=== PATIENT | female | born 1980 | race Caucasian/White ===

== ENCOUNTER → 2018-07-13 17:56 | Outpatient (CLI) | payer BC, SELFPAY ==
--- NOTE | 2018-07-13 18:12 | XR_ITS ---
XR hip RT 2-3V w/pelvis HISTORY: Right hip pain ITS.REASON: PAIN ORDERING PHYSICIAN: Gabrielle Chaney PATIENT AGE: 38 years COMPARISON: None FINDINGS: No fracture or dislocation is evident. No significant degenerative change. No lytic or blastic change. Unremarkable soft tissues . Bilateral tubal ligation clips are present. IMPRESSION: Negative hip
== END ==
PROVIDERS: PCP Nurse Practitioner Family; Visit Provider Nurse Practitioner Family
DX: M25.551 Pain in right hip (principal)
CPT/HCPCS: 73502

== ENCOUNTER 2019-11-10 13:41 | Emergency (ER) | payer BC, SELFPAY ==
[2019-11-10 13:42] VITALS: BP 124/94; PULSE 98; RESP 16; TEMP 38; O2SAT 98; BMI 36.6
--- NOTE | 2019-11-10 13:57 | HMH.EDLOEX ---
ED Disposition Clinical Impression: Laceration Disposition: Home, Self-Care Condition on Discharge: Good Instructions: DI for Laceration Repair Additional Instructions: Follow-up with podiatry in 2 to 3 days for wound check. Change dressing daily and keep wound dry and clean being sure to pad in between the toes when you apply the dressing. Return to a provider for fever, foul-smelling drainage, worsening pain. Prescriptions: cephALEXin [Keflex 500mg Cap] 500 mg PO QID 5 Days #20 cap Prescription Printed Referrals: Preethi Funes DPM [Staff Physician] - 3 days - Critical Care Critical Care Time: No Attestation: On , the high probability of a clinically significant, sudden or life threatening deterioration of the following system(s) required my full and direct attention, intervention and personal management. The time I documented below is in addition to time spent performing reported procedures but includes the following listed in this critical care notation. Medical Decision Making - Medical Records Medical records reviewed: Yes: I reviewed the patient's medical records. - William Inquiry Pt receiving controlled substance: No Vital Signs: 11/10/19 13:42 Temperature 100.4 F H Temperature Source Oral Pulse Rate [Left Radial] 98 H Respiratory Rate 16 Blood Pressure [Right Arm] 124/94 H Blood Pressure Mean [Right Arm] 104 Blood Pressure Position [Right Arm] Sitting 02 Sat by Pulse Oximetry 98 Oxygen Delivery Method Room Air Orders (Tests/Meds): ED MEDICATIONS Discontinued Medications Generic Name Dose Route Start Last Admin Trade Name Freq PRN Reason Stop Dose Admin Tetanus/Reduced Diphtheria/Acell Pertussis 0.5 ml 11/10/19 14:00 11/10/19 14:21 Adacel Tdap 0.5ml Syringe IM 11/10/19 14:01 0.5 ml .ONCE ONE Administration ORDERS Category Date Time Status Foot XR right 2 views [XR foot RT 2V] Stat Exams 11/10/19 13:59 Ordered - Radiology Data #1 Image(s): Foot/Toes Image Reviewed: Yes I reviewed the patient's radiology image No acute fracture or dislocation Medical Decision Narrative: Patient with laceration repaired as documented. No acute fracture on x-ray. Will cover with antibiotics given nature of injury. Advise follow-up with podiatry given complicated nature of her wound. Tetanus updated. Lower Extremity Injury HPI - General Stated Complaint: ao mowing cut foot toes Time Seen by Provider: 11/10/19 13:58 Mode of Arrival: Wheelchair Source of Information: Patient Limitations: No Limitations - History of Present Illness HPI Narrative: This is a 39-year-old female who presents to the emergency department for evaluation of right foot injury while mowing her lawn just prior to arrival. States that she was trying to get this to return more under a way again and cut the top of her foot. Pain is worse with movement, better with rest. Unknown tetanus status. - Related Data Home Medications Medication Instructions Recorded Confirmed Citalopram Hydrobromide [Celexa] 20 mg PO DAILY 07/19/19 07/19/19 Doxycycline Hyclate [Doxycycline 100 mg PO BID 07/19/19 07/19/19 100mg Capsule] Previous Rx's Medication Instructions Recorded Butalb/Acetaminophen/Caffeine 1 each PO Q4HP PRN #8 cap 07/19/19 [Fioricet 50-300-40 mg Capsule] cephALEXin [Keflex 500mg Cap] 500 mg PO QID 5 Days #20 cap 11/10/19 Allergies Allergy/AdvReac Type Severity Reaction Status Date / Time No Known Allergies Allergy Verified 08/06/18 16:04 [facility] History - Hepatitis A Screen Attestation statement:: This patient has been screened for Hepatitis A risk factors. I have reviewed the patient's past medical history: Yes Medical History: Denies:: Diabetes Mellitus Type 1, Diabetes Mellitus Type 2 Other Surgeries: Yes: Dilation and Curettage, Tubal Ligation Comment: ablation - Social History Smoking Status: Never smoker Alcohol Intake: never Alcoh
--- NOTE | 2019-11-10 13:59 | XR_ITS ---
PROCEDURE: XR FOOT RT 2V CLINICAL INDICATION: cut with riding lawnmower COMPARISON: No exams were available for comparison FINDINGS: No fracture or dislocation. No lytic or blastic change. There is normal mineralization. The joint spaces are well-preserved. No significant degenerative/arthritic changes. No erosive changes evident. There is a small spur of the calcaneus at the surface of the Achilles tendon. Other findings:No significant soft tissue injury is identified. IMPRESSION: No acute findings. Dictated by: Dr. Maciej Moreland MD 11/10/2019 16:[address] Maciej Moreland MD in [place] 11/10/2019 16:25
--- NOTE | 2019-11-10 14:12 | PC.NURSE ---
Rad at bedside
--- NOTE | 2019-11-10 15:05 | PC.NURSE ---
non adherent dressing applied to rt foot
[2019-11-10 15:14] VITALS: BP 135/88; PULSE 88; RESP 16; TEMP 37.7; O2SAT 98
== END 2019-11-10 15:16 | disposition home or self-care (01) ==
PROVIDERS: Emergency Provider Emergency Medicine; PCP Nurse Practitioner Family
DX: S91.311A Laceration without foreign body, right foot, initial encounter (principal); W30.89XA Contact with other specified agricultural machinery, initial encounter; Y92.017 Garden or yard in single-family (private) house as the place of occurrence of the external cause; Z23 Encounter for immunization
CPT/HCPCS: 12002; 73620; 90471; 90715; 99282

== ENCOUNTER → 2019-11-18 16:51 | Outpatient (CLI) | payer BC, SELFPAY ==
--- NOTE | 2019-11-18 16:58 | XR_ITS ---
PROCEDURE: XR FOOT WT BEARING LT 3V CLINICAL INDICATION: Right 2nd and 3rd toe lacerations COMPARISON: XR FOOT RT 2V from 11/10/2019 FINDINGS: No fracture or dislocation. No lytic or blastic change. There is normal mineralization. The joint spaces are well-preserved. No significant degenerative/arthritic changes. No erosive changes evident. Other findings:No radiopaque foreign body IMPRESSION: No acute findings. Dictated by: Ru Frazier MD 11/18/2019 18:13 Electronically signed by Ru Frazier MD in [place] 11/18/2019 18:13
== END ==
PROVIDERS: PCP Nurse Practitioner Family; Visit Provider Podiatrist
DX: S99.921A Unspecified injury of right foot, initial encounter (principal); W28.XXXA Contact with powered lawn mower, initial encounter; L03.115 Cellulitis of right lower limb
CPT/HCPCS: 36415; 73630; 80053; 85025; 85651; 86140

== ENCOUNTER → 2019-11-18 17:05 | Outpatient (CLI) | payer BC, SELFPAY ==
[2019-11-18 17:16] LABS: Basophils # 0.1 K/mm3 (0-0.2); Basophils % 0.6 % (0.1-2.0); Eosinophils # 0.3 K/mm3 (0.0-0.4); Eosinophils % 2.6 % (0.1-12.0); Hematocrit 43.2 % (37.0-47.0); Hemoglobin 15.2 g/dL (12.2-16.2); Lymphocytes # 2.4 K/mm3 (0.7-4.5); Lymphocytes % 23.6 % (10-50); Mean Corpuscular HGB Conc 35.1 g/dL (31.8-35.4); Mean Corpuscular Hemoglobin 30.6 pg (27.0-31.2); Mean Corpuscular Volume 87.3 fl (81-99); Monocytes # 0.6 K/mm3 (0.1-1.0); Monocytes % 5.4 % (1.7-9.3); Neutrophils # 6.9 K/mm3 (1.8-7.8); Neutrophils % 67.7 % (37.0-80.0); Platelet Count 331 K/mm3 (142-424); Red Blood Count 4.94 M/mm3 (4.20-5.40); Red Cell Distribution Width 12.7 % (11.5-17.5); White Blood Count 10.3 K/mm3 (4.8-10.8)
[2019-11-18 19:16] LABS: Erythrocyte Sedimentation Rate 33 mm/hr (0-20)
[2019-11-18 19:38] LABS: Chloride 101 mmol/L (98-107); Sodium 138 mmol/L (136-145)
[2019-11-18 19:39] LABS: Potassium 4.9 mmoL/L (3.5-5.1)
[2019-11-18 19:41] LABS: Alanine Aminotransferase 74 U/L (12-78); Alkaline Phosphatase 66 U/L (38-126); Anion Gap 12.9 mEq/L (5-15); Aspartate Amino Transferase 57 U/L (14-36); Bilirubin,Total 0.5 mg/dl (0.2-1.3); Blood Urea Nitrogen 10 mg/dl (7-17); Carbon Dioxide 29 mmol/L (22.0-30.0); Estimated Glomerular Filt Rate 69 ml/min (>60); GFR (African American) 84 ML/MIN (>60)
[2019-11-18 19:42] LABS: Albumin Level 4.5 g/dl (3.5-5.0); Albumin/Globulin Ratio 1.6 (1.1-1.8); Calcium 9.7 mg/dl (8.4-10.2); Globulin 2.9 g/dL (1.3-3.2); Glucose 82 mg/dl (74-100); Total Protein,Serum 7.4 g/dl (6.3-8.2)
[2019-11-18 19:47] LABS: C-Reactive Protein 5.6 mg/L (0-4)
== END ==
PROVIDERS: Visit Provider Podiatrist
DX: L03.115 Cellulitis of right lower limb (principal)
CPT/HCPCS: 36415; 80053; 85025; 85651; 86140

== ENCOUNTER 2019-12-09 10:28 | Emergency (ER) | payer BC, SELFPAY ==
[2019-12-09 10:40] VITALS: BP 144/102; PULSE 91; RESP 15; TEMP 36.8; O2SAT 98; BMI 35.7
[2019-12-09 11:10] LABS: Adenovirus F 40/41, stool Not Detected (NotDetected); Astrovirus Not Detected (NotDetected); Campylobacter Not Detected (NotDetected); Cryptosporidium Not Detected (NotDetected); Cyclospora Cayetanesis Not Detected (NotDetected); Entamoeba histolytica Not Detected (NotDetected); Enteroaggregative E coli Not Detected (NotDetected); Enteropathogenic E coli Not Detected (NotDetected); Enterotoxigenic E coli Not Detected (NotDetected); Giardia lamblia Not Detected (NotDetected); Norovirus Not Detected (NotDetected); Plesimonas Shigalloides, PCR Not Detected (NotDetected); Rotavirus A Not Detected (NotDetected); Salmonella, PCR Not Detected (NotDetected); Sapovirus Not Detected (NotDetected); Shiga-like toxin E coli Not Detected (NotDetected); Shigella Enterovasive E coli Not Detected (NotDetected); Vibrio Cholerae Not Detected (NotDetected); Vibrio, PCR Not Detected (NotDetected); Yersinia Entercolitica, PCR Not Detected (NotDetected)
[2019-12-09 11:25] LABS: Basophils % 0.5 % (0.1-2.0); Eosinophils # 0.1 K/mm3 (0.0-0.4); Eosinophils % 1.8 % (0.1-12.0); Hematocrit 39.2 % (37.0-47.0); Hemoglobin 13.9 g/dL (12.2-16.2); Lymphocytes # 1.9 K/mm3 (0.7-4.5); Lymphocytes % 26.7 % (10-50); Mean Corpuscular HGB Conc 35.5 g/dL (31.8-35.4); Mean Corpuscular Hemoglobin 30.7 pg (27.0-31.2); Mean Corpuscular Volume 86.4 fl (81-99); Mean Platelet Volume 7.1 fl (7.4-10.4); Monocytes # 0.4 K/mm3 (0.1-1.0); Monocytes % 5.1 % (1.7-9.3); Neutrophils # 4.7 K/mm3 (1.8-7.8); Neutrophils % 65.9 % (37.0-80.0); Platelet Count 277 K/mm3 (142-424); Red Blood Count 4.53 M/mm3 (4.20-5.40); Red Cell Distribution Width 12.9 % (11.5-17.5); White Blood Count 7.1 K/mm3 (4.8-10.8)
[2019-12-09 11:29] LABS: Alanine Aminotransferase 56 U/L (12-78); Albumin Level 4.5 g/dl (3.5-5.0); Albumin/Globulin Ratio 1.5 (1.1-1.8); Alkaline Phosphatase 66 U/L (38-126); Aspartate Amino Transferase 50 U/L (14-36); Bilirubin,Total 0.3 mg/dl (0.2-1.3); Blood Urea Nitrogen 8 mg/dl (7-17); Calcium 9.1 mg/dl (8.4-10.2); Carbon Dioxide 30 mmol/L (22.0-30.0); Chloride 101 mmol/L (98-107); Creatinine Clearance Estimated 128 mL/min (50-200); Estimated Glomerular Filt Rate 69 ml/min (>60); GFR (African American) 84 ML/MIN (>60); Globulin 3.1 g/dL (1.3-3.2); Glucose 107 mg/dl (74-100); Sodium 136 mmol/L (136-145); Total Protein,Serum 7.6 g/dl (6.3-8.2)
[2019-12-09 11:34] LABS: C-Reactive Protein 18.3 mg/L (0-4)
[2019-12-09 11:42] LABS: Lactic Acid 0.8 mmol/L (0.7-2.1)
[2019-12-09 11:45] LABS: Amylase 73 U/L (30-110); Lipase 70 U/L (23-300)
[2019-12-09 11:59] LABS: Erythrocyte Sedimentation Rate 19 mm/hr (0-20)
--- NOTE | 2019-12-09 12:03 | HMH.EDGENADL ---
ED Disposition Clinical Impression: Diarrhea, C. difficile colitis Disposition: Home, Self-Care Condition on Discharge: Good Instructions: DI for Acute Abdomen Prescriptions: Vancomycin HCl 125 mg PO Q6 10 Days #40 cap Transmission Status: Sent to [facility] #[id number] Referrals: Ene Lockhart MD [Primary Care Provider] - - Critical Care Critical Care Time: No Attestation: On 12/09/19, the high probability of a clinically significant, sudden or life threatening deterioration of the following system(s) required my full and direct attention, intervention and personal management. The time I documented below is in addition to time spent performing reported procedures but includes the following listed in this critical care notation. Medical Decision Making - Medical Records Medical records reviewed: Yes: I reviewed the patient's medical records. - William Inquiry Pt receiving controlled substance: No Vital Signs: 12/09/19 10:40 12/09/19 12:31 Temperature 98.2 F 98.5 F Temperature Source Oral Oral Pulse Rate 79 Pulse Rate [Right Brachial] 91 H Respiratory Rate 15 18 Blood Pressure 119/73 Blood Pressure [Right Arm] 144/102 H Blood Pressure Mean [Right Arm] 116 Blood Pressure Source [Right Arm] Automatic Cuff Blood Pressure Position [Right Arm] Sitting 02 Sat by Pulse Oximetry 98 Oxygen Delivery Method Room Air Room Air - Lab Data Lab results reviewed: Yes: I reviewed the patient's lab results. Lab Results 12/09/19 10:55: Stl Aeromonas (PCR) Not detected, Stl C. cayetanensis PCR Not detected, Stool Rotavirus (PCR) Not detected, Stl Adenov F 40/41 PCR Not detected, Stool Astrovirus (PCR) Not detected, Stool Campylobacter PCR Not detected, Stl C.difficile Tox PCR Detected A, Stool Cryptosporidium PCR Not detected, Stl E.coli Shiga Tox PCR Not detected, Stool E coli O157 PCR Not detected, Stl Enterotoxigenic E PCR Not detected, Stool EPEC (PCR) Not detected, Stool EAEC (PCR) Not detected, Stl E. histolytica PCR Not detected, Stool Giardia Lamblia PCR Not detected, Stool Salmonella PCR Not detected, Stool Sapovirus (PCR) Not detected, Stl P. shigelloides PCR Not detected, Stl Shigella/EIEC PCR Not detected, St Y.enterocolitica PCR Not detected, Stool Vibrio (PCR) Not detected, Stl Vibrio cholerae PCR Not detected, Stl Norovirus GI/GII PCR Not detected 12/09/19 11:15: WBC 7.1, RBC 4.53, Hgb 13.9, Hct 39.2, MCV 86.4, MCH 30.7, MCHC 35.5 H, RDW 12.9, Plt Count 277, MPV 7.1 L, Neut % (Auto) 65.9, Lymph % (Auto) 26.7, Lamar % (Auto) 5.1, Eos % (Auto) 1.8, Baso % (Auto) 0.5, Neut # (Auto) 4.7, Lymph # (Auto) 1.9, Lamar # (Auto) 0.4, Eos # (Auto) 0.1, Baso # (Auto) 0.0 12/09/19 11:15: Sodium 136, Potassium 4.0, Chloride 101, Carbon Dioxide 30, Anion Gap 9.0, BUN 8, Creatinine 0.90, Estimated Creat Clear 128, Estimated GFR 69, Est GFR ( Amer) 84, Glucose 107 H, Calcium 9.1, Total Bilirubin 0.3, AST 50 H, ALT 56, Alkaline Phosphatase 66, C-Reactive Protein 18.3 H, Total Protein 7.6, Albumin 4.5, Globulin 3.1, Albumin/Globulin Ratio 1.5 12/09/19 11:15: Lactate 0.8 12/09/19 11:15: ESR 19 12/09/19 11:15: Amylase 73, Lipase 70 Result diagrams: 12/09/19 11:15 12/09/19 11:15 Orders (Tests/Meds): ED MEDICATIONS Discontinued Medications Generic Name Dose Route Start Last Admin Trade Name Freq PRN Reason Stop Dose Admin Sodium Chloride 500 mls @ 999 mls/hr 12/09/19 11:00 12/09/19 11:02 Sod Chlor 0.9% 1000ml Bag IV 12/09/19 11:30 999 mls/hr .Q31M EMELY Administration Medical Decision Narrative: Patient positive for C. difficile General Adult HPI - General Chief complaint: Abdominal Pain Stated complaint: diarrhea Time Seen by Provider: 12/09/19 12:03 Mode of Arrival: Ambulatory Source of Information: Patient Limitations: No Limitations Description of Symptoms (Recalled from ER Triage Doc. by RN): PATIENT REPORTS DIARRHEA SINCE MONDAY. REPORTS DIARRHEA EVERY HOUR. PATIENT REPORTS SH
[2019-12-09 12:31] VITALS: BP 119/73; PULSE 79; RESP 18; TEMP 36.9; O2SAT 100
[2019-12-09 12:53] LABS: Clostridium Difficile A/B, PCR Detected (NotDetected)
[2019-12-09 13:30] VITALS: BP 129/95; PULSE 80; RESP 18; TEMP 36.8; O2SAT 97
== END 2019-12-09 13:30 | disposition home or self-care (01) ==
PROVIDERS: Podiatrist; Emergency Provider Family Medicine; PCP Surgery
DX: A04.72 Enterocolitis due to Clostridium difficile, not specified as recurrent (principal)
CPT/HCPCS: 80053; 82150; 83605; 83690; 85025; 85651; 86140; 87507; 96365; 99282; 99283

== ENCOUNTER → 2019-12-31 09:36 | Outpatient (CLI) | payer BC, SELFPAY ==
[2019-12-31 09:40] LABS: Adenovirus F 40/41, stool Not Detected (NotDetected); Astrovirus Not Detected (NotDetected); Campylobacter Not Detected (NotDetected); Cryptosporidium Not Detected (NotDetected); Cyclospora Cayetanesis Not Detected (NotDetected); Entamoeba histolytica Not Detected (NotDetected); Enteroaggregative E coli Not Detected (NotDetected); Enteropathogenic E coli Not Detected (NotDetected); Enterotoxigenic E coli Not Detected (NotDetected); Giardia lamblia Not Detected (NotDetected); Norovirus Not Detected (NotDetected); Plesimonas Shigalloides, PCR Not Detected (NotDetected); Rotavirus A Not Detected (NotDetected); Salmonella, PCR Not Detected (NotDetected); Sapovirus Not Detected (NotDetected); Shiga-like toxin E coli Not Detected (NotDetected); Shigella Enterovasive E coli Not Detected (NotDetected); Vibrio Cholerae Not Detected (NotDetected); Vibrio, PCR Not Detected (NotDetected); Yersinia Entercolitica, PCR Not Detected (NotDetected)
[2019-12-31 22:05] LABS: Clostridium Difficile A/B, PCR Detected (NotDetected)
== END ==
PROVIDERS: Visit Provider Nurse Practitioner Family
DX: A04.71 Enterocolitis due to Clostridium difficile, recurrent (principal)
CPT/HCPCS: 87507

== ENCOUNTER → 2020-03-30 10:53 | Outpatient (CLI) | payer BC, SELFPAY ==
--- NOTE | 2020-03-30 10:59 | XR_ITS ---
PROCEDURE: XR SHOULDER LT MIN 2V CLINICAL INDICATION: PAIN IN LT SHOULDER COMPARISON: No exams were available for comparison FINDINGS: No fracture or dislocation. No lytic or blastic change. There is normal mineralization. The joint spaces are well-preserved. No significant degenerative/arthritic changes. No erosive changes evident. Other findings:None. IMPRESSION: No acute findings. Dictated by: Ru Frazier MD 03/30/2020 11:17 Ru Frazier MD in [place] 03/30/2020 11:17
== END ==
PROVIDERS: PCP Nurse Practitioner Family; Visit Provider Nurse Practitioner Family
DX: M25.512 Pain in left shoulder (principal)
CPT/HCPCS: 73030

== ENCOUNTER → 2020-04-07 07:40 | Outpatient (CLI) | payer BC, SELFPAY ==
--- NOTE | 2020-04-07 | MR_ITS ---
PROCEDURE: MR SHOULDER LT WO CON CLINICAL INDICATION: LEFT SHOULDER PAIN Pt. c/o left shoulder pain x 3-4 months with no known trauma or injury. Prior left shoulder x-ray 03/30/20 COMPARISON: DX XR SHOULDER LT MIN 2V from 03/30/2020 TECHNIQUE: Routine multiplanar multi echo sequences are performed without gadolinium enhancement. FINDINGS: There is mild acromioclavicular hypertrophy with subacromial stenosis. There is slight increased T2 signal of the distal aspect of the supraspinatus tendon. There is no evidence tendon tear. The infraspinatus and subscapularis and teres minor tendons are intact. No obvious labral tear. The bicipital tendon is in place. No fracture or dislocation. No abnormal fluid collections or significant osteoarthritic change. IMPRESSION: Acromioclavicular arthropathy with subacromial stenosis which may result in impingement symptomatology with tendinopathy/tendinosis of the supraspinatus tendon. No evidence of rotator cuff tear. Dictated by: Ru Frazier MD 04/09/2020 11:10 Ru Frazier MD in [place] 04/09/2020 11:10
--- NOTE | 2020-04-07 08:39 | MM_ITS ---
PROCEDURE: MM DIG SCREENING MAMM BI W/CAD Digital Breast Tomosynthesis Included CLINICAL INDICATION: SCREENING There is a history of breast cancer in the patient's maternal grandmother and maternal great aunt. COMPARISON: No exams were available for comparison TECHNIQUE: Standard CC and MLO images and 3D Tomosynthesis was obtained. R2 CAD reviewed. FINDINGS: Moderate diffuse fibroglandular densities are seen in both breast slightly more prominent right than left. There are no CAD markings. Donnell images show no suspicious abnormality. There are no suspicious microcalcifications. There are fatty replaced nodes in both axilla. IMPRESSION: Fibrofatty parenchyma with no suspicious lesions seen BI-RAD Category: 1 Negative FOLLOW-UP: 1YR 1 Year Follow-up (A letter has been sent to the patient regarding results of the study.) Dictated by: Dr. Maciej Moreland MD 04/07/2020 15:42 Dr. Maciej Moreland MD in [place] 04/07/2020 15:42
== END ==
PROVIDERS: PCP Nurse Practitioner Family; Visit Provider Nurse Practitioner Family
DX: Z12.31 Encounter for screening mammogram for malignant neoplasm of breast (principal); M25.512 Pain in left shoulder
CPT/HCPCS: 73221; 77063; 77067

== ENCOUNTER → 2021-08-31 10:57 | Outpatient (CLI) | payer BC, SELFPAY ==
--- NOTE | 2021-08-31 11:03 | MM_ITS ---
PROCEDURE INFORMATION: Exam: MG Bilateral Screening 3D Mammography Exam date and time: 08/31/2021 10:56 AM Age: 41 years old Clinical indication: Encounter for screening mammogram for malignant neoplasm of breast cancer. Her maternal grandmother and maternal great aunt had breast cancer. TECHNIQUE: Imaging protocol: Bilateral Screening tomosynthesis and 2D mammography including computer-aided detection (CAD) when performed. COMPARISON: MG MM DIG SCREENING MAMM BI W/CAD 04/07/2020 9:09 AM FINDINGS: MAMMOGRAPHY: Breast composition: The breast tissue is heterogeneously dense, which may obscure small masses. Mass: None. Architectural distortion: None. Calcifications: No suspicious calcifications. Asymmetric density: None. Skin thickening: None. Axillary adenopathy: None. IMPRESSION: No mammographic evidence of malignancy. Annual screening is recommended unless otherwise clinically indicated. ASSESSMENT: BI-RADS Category 1: Negative
== END ==
PROVIDERS: PCP Nurse Practitioner Family; Visit Provider Nurse Practitioner Family
DX: Z12.31 Encounter for screening mammogram for malignant neoplasm of breast (principal)
CPT/HCPCS: 77063; 77067

== ENCOUNTER 2022-06-24 17:33 | Emergency (ER) | payer BC, SELFPAY ==
[2022-06-24 17:40] VITALS: BP 189/101; PULSE 86; RESP 20; TEMP 37.2; O2SAT 98; BMI 38.6
--- NOTE | 2022-06-24 18:00 | XR_ITS ---
PROCEDURE INFORMATION: Exam: XR Cervical Spine Exam date and time: 06/24/2022 5:59 PM Age: 42 years old Clinical indication: Neck pain; Additional info: Pain, knot left posterior neck x 3 days no known inj TECHNIQUE: Imaging protocol: Radiologic exam of the cervical spine. Views: 2 or 3 views. COMPARISON: MR SHOULDER LT WO CON 04/07/2020 7:52 AM FINDINGS: Bones/joints: Normal. No acute fracture. Normal alignment. Soft tissues: Unremarkable. IMPRESSION: No acute findings.
--- NOTE | 2022-06-24 18:00 | EXP.UTC ---
Discharge Plan Disposition Patient Disposition: Home, Self-Care Condition: Good Prescriptions Prescriptions: New cyclobenzaprine 10 mg tablet 10 mg PO TID PRN (Reason: muscle spasm) Qty: 15 0RF methylprednisolone [Medrol (Soto)] 4 mg tablets,dose pack See Rx Instructions .Route .COMPLEX 6 Days Qty: 21 0RF Rx Instructions: taper pack; No Action propranolol 80 mg capsule,extended release 24hr 80 mg PO DAILY Label Comments: TAKE 1 CAPSULE BY MOUTH EVERY DAY FOR HEADACHE AND BLOOD PRESSURE Referrals Follow up/Referrals: Gabrielle Chaney [Primary Care Provider] - See instructions Activity Restrictions/Add. Instructions Additional Instructions/Restrictions: *Ibuprofen ajay 6 hours with meal as needed for pain/inflammation *Not additional anti-inflammatory like motrin, aleve, advil with the above amount of ibuprofen. You can still take Tylenol every 4 hours as needed if you need something else for pain *Ice 20 minutes every 2 hours for the first 48 hours after the initial injury followed by moist heat every 20 minutes 3-4 times a day to affected area *Muscle relaxer every 8 hours as needed for muscle spasms but remember, it WILL cause drowsiness You cannot take it and drive, operate machinery or care for small children. *Keep this area active, no movement leads to more stiffness, However take it easy and avoid heavy lifting pushing or pulling *Follow up with you family doctor if no improvement for further treatment Clinical Impressions Clinical Impression: Muscle spasm Instructions Patient Instructions: DI for Muscle Spasm Discharge ED Provider: [facility] General Stated complaint: SPOT ON NECK Mode of Arrival: Ambulatory Source of Information: Patient Limitations: No Limitations Time Seen by Provider: 06/24/22 18:00 Description of Symptoms (Recalled from Triage Doc. by RN): PATIENT C/O KNOT TO BACK OF NECK/UPPER BACK THAT STARTED MONDAY. SHE REPORTS THE KNOT IS TENDER TO TOUCH AND HURTS WITH MOVEMENT HEENT Symptoms (Recalled from RN notes): No Resp Symptoms (Recalled from RN notes): No Skin Symptoms (Recalled from RN notes): No MS Symptoms (Recalled from RN notes): Yes Functional Status (Recalled from RN notes): WNL History of Present Illness Provider Complaint: Patient states that she noticed knot on the back of her neck and hurts when she turns her head or moves her arm States that she thought it may be a muscle but the school nurse said it looked red earlier so they marked it States that this evening it was still sore so she came in to get it looked at Related Data Home Medications Medication Instructions Recorded Confirmed propranolol 80 mg capsule,24 80 mg PO DAILY Hypertension 06/24/22 06/24/22 hr,extended release Previous Rx's Medication Instructions Recorded cyclobenzaprine 10 mg tablet 10 mg PO TID PRN muscle spasm #15 06/24/22 tabs methylprednisolone 4 mg tablets in See Rx Instructions .Route 06/24/22 a dose pack (Medrol (Soto)) .COMPLEX 6 days #21 tabs Allergies Allergy/AdvReac Type Severity Reaction Status Date / Time No Known Allergies Allergy Verified 01/28/20 16:26 Worker's Comp Is this a Worker's Comp case?: No [facility] Disclaimer: The information contained in this section may have been updated after the patient was seen, as this information can be updated by other users. Medical History (Updated 06/24/22 @ 18:58 by Sharon Hassan APRN) Hypertension Urinary tract infection Surgical History (Updated 06/24/22 @ 17:56 by Abigail Ramírez RN) History of tubal ligation Social History (Updated 06/24/22 @ 17:57 by Abigail Ramírez RN) Smoking Status: Never smoker alcohol intake: current current occupational status: employed Travel in the last 8 weeks: None household members: spouse housing: house current occupation: [employer] current occupational exposures/hazards: No ROS O
[2022-06-24 18:22] VITALS: BP 157/88; PULSE 86; RESP 20; TEMP 37.2; O2SAT 98
== END 2022-06-24 18:55 | disposition home or self-care (01) ==
PROVIDERS: Emergency Provider Nurse Practitioner; PCP Nurse Practitioner Family
DX: M62.838 Other muscle spasm (principal)
CPT/HCPCS: 72040; 99212; 99213; G0463

== ENCOUNTER → 2022-09-07 13:16 | Outpatient (CLI) | payer BC, SELFPAY ==
--- NOTE | 2022-09-07 13:22 | US_ITS ---
PROCEDURE INFORMATION: Exam: US Left Breast, Complete US Right Breast, Complete MG Bilateral Diagnostic Breast Tomosynthesis Exam date and time: 09/07/2022 2:47 PM Age: 42 years old Clinical indication: Intermittent rash for 1 year; Breast pain; Right TECHNIQUE: Imaging protocol: Complete ultrasound of all four quadrants of the left breast and the retroareolar regions, including ultrasound of the axilla when performed. Complete ultrasound of all four quadrants of the right breast and the retroareolar regions, including ultrasound of the axilla when performed. Bilateral Diagnostic tomosynthesis and 2D mammography including computer-aided detection (CAD) when performed. Unilateral or bilateral exam. COMPARISON: MG MM DIG MAMM BI DX W/CAD 09/07/2022 1:48 PM FINDINGS: MAMMOGRAPHY: The breast tissue is composed of scattered areas of fibroglandular density. There is no stellate mass, architectural distortion or suspicious microcalcifications in either breast to suggest malignancy. No skin thickening or axillary adenopathy. ULTRASOUND: Sonographic images of both breasts including the retroareolar regions, all 4 quadrants and the axilla do not demonstrate any solid masses. Minimal subcentimeter cystic change is present bilaterally. No architectural distortion or acoustical shadowing. No skin thickening or axillary adenopathy. IMPRESSION: No mammographic or sonographic evidence of malignancy. Annual bilateral mammographic screening is recommended unless otherwise clinically indicated. ASSESSMENT: BI-RADS Category 1: Negative
== END ==
LOC: RAD 13:16
PROVIDERS: PCP Nurse Practitioner Family; Visit Provider Nurse Practitioner Family
DX: N64.4 Mastodynia (principal)
CPT/HCPCS: 76641; 77062; 77066; G0279

== ENCOUNTER 2025-03-11 16:06 | Outpatient (CLI) | payer BC, SELFPAY ==
--- OUTSIDE RECORDS SUMMARY | 2025-03-11 16:08 | XMS_ITS | Clinical Summary ---
[facility] Address [address] [place] [address] Care Team Providers Care Mail Processor Name Role Phone Provider, No Known Primary Care Provider Unavail able Allergies No known active allergies Medications fluticasone (FLONASE) 50 MCG/ACT nasal spray 2 sprays into the nostril(s) as directed by provider Daily. Active cetirizine (zyrTEC) 10 MG tablet Take 10 mg by mouth Daily. Active azithromycin (ZITHROMAX Z-LESLYE) 250 MG tablet Take 2 tablets the first day, then 1 tablet daily for 4 days. 6 tablet 04/17/2018 Active Social History Tobacco Use Types Packs/Day Years Used Date Smoking Tobacco: Never Abuse Screen Answer Date Recorded Unsafe at Home or Work/School Not on file Feels Threatened by Someone? Not on file 02/2023 Does Anyone Keep You from Co ntacting Others or Doint Things Outside the Home? Not on file 03/13/2023 Physical Sign of Abuse Present Not on file 1 Housing Stability Answer Date Recorded Current Living Arrangements Not on file 02/2023 Potentially Unsafe Housing Conditions Not on bigg e 03/13/2023 Family and Community Support Answer Gene e Recorded Help with Day-to-Day Activities Not on file 03/13/2023 Lonely or Isolated Not on file 03/13/2023 Employment Answer Date Recorded Do you want help finding or keeping work or a benjamín b? Not on file 03/13/2023 Disabilities Answer Date Recorded Concentrating, Remembering, or Making Decisions Difficulty Not on file 03/13/2023 Doing Errands Independently Difficulty Not on fi le 03/13/2023 Education Answer Date Recorded Help with school or training? Not on file Preferred Language Not on file 03/13/2023 Comments No Sex and Gender Information Value Date Recorded Sex Assigned at Not on file Legal Sex Female 1:16 PM EDT Gender Identity Not on file Sexual Orientation Not on file Last Filed Vital Signs Vital Sign Reading Time Taken Comments Blood Pressure 128/92 04/17/2018 5:26 PM EST Pulse 86 04/17/2018 5:26 PM EST Temperature 36.9 C (98.4 F) 04/17/2018 5:26 PM EST Respiratory Rate 15 04/17/2018 5:26 PM EST Oxygen Saturation 98% 04/17/2018 5:26 PM EST Inhaled Oxygen Concentration - - Weight 92.8 kg (204 lb 9.6 oz) 04/17/2018 5:26 P M EST Height 165.1 cm (5' 5 ) 04/17/2018 5:26 PM EST Body Mass Index 34.05 04/17/2018 5:26 PM EST Plan of Treatment Health Maintenance Due Date Last Done Comments Annual Gynecologic Pelvic an d Breast Exam 1979 TDAP/TD VACCINES (1 - Tdap) 1998 ANNUAL PHYSICAL 04/17/2018 HEPATITIS C SCREENING 04/17/2018 MAMMOGRAM 2019 COLOGUARD 2024 COLON CANCER SCREENING 5 YEA R SIGMOIDOSCOPY 2024 COLONOSCOPY 2024 [address]ECTAL CANCER SCREENING 2024 CT COLONOGRAPHY 2024 FECAL OCCULT BLOOD TEST 2024 FIT Testing (1 year) 2024 INFLUENZA VACCINE 01/03/2025 Pneumococcal Vaccine 0-49 Aged Out No longer eligible based on patient's age to complete this topic Insurance Care Teams Mail Processor Relationship Specialty Start Date End Date Provider, [place] [address] PCP - General 04/17/18
--- NOTE | 2025-03-11 16:10 | MM_ITS ---
PROCEDURE INFORMATION: Exam: MG Bilateral Screening 3D Mammography Exam date and time: 03/11/2025 4:08 PM Age: 44 years old Clinical indication: Screening examination TECHNIQUE: Imaging protocol: Bilateral Screening tomosynthesis and 2D mammography including computer-aided detection (CAD) when performed. COMPARISON: 1. MG MM DIG MAMM BI DX W/CAD 09/07/2022 1:48 PM 2. MG MM DIG SCREENING MAMM BI W/CAD 08/31/2021 10:56 AM FINDINGS: MAMMOGRAPHY: Breast composition: There are scattered areas of fibroglandular density. Mass: None. Architectural distortion: None. Calcifications: No suspicious calcifications. Asymmetric density: None. Skin thickening: None. Axillary adenopathy: None. IMPRESSION: No mammographic evidence of malignancy. Annual screening is recommended unless otherwise clinically indicated. ASSESSMENT: BI-RADS Category 1: Negative.
== END 2025-03-11 23:59 | disposition home or self-care (01) ==
LOC: RAD 16:06
PROVIDERS: PCP Nurse Practitioner Family; Visit Provider Obstetrics & Gynecology
DX: Z12.31 Encounter for screening mammogram for malignant neoplasm of breast (principal); R92.323 Mammographic fibroglandular density, bilateral breasts
CPT/HCPCS: 77063; 77067